=== PATIENT | female | born 1990 | race African-American/Black ===

== ENCOUNTER 2020-05-22 14:20 | Inpatient (IN) | payer BC ==
[~2020-05-22] VITALS: Ht 170.2 cm; Wt 101.8 kg
[2020-05-28] VITALS (35 sets, daily range): BP systolic 84–174; BP diastolic 47–101; PULSE 59–129; TEMP 97.4–98.4
--- NOTE | 2020-05-28 07:05 | NUR ---
Pt here for scheduled induction of labor. 40.0 weeks gestation, G1. Pt taken to room LDR 6 and oriented. Pt EFM, explained. IV started to left hand x1 attempt, labs drawn from IV site per this nurse and then LR infusing without difficulty. GBS +, pen G 5mu started IVPB. NKDA. Assessment complete and consents signed. Pt states having contractions last night and bloody mucous. States baby has been active. Denies any leaking of fluid or SROM. 0740:SVE: 4/75/-3, bulgy bag of littlejohn palpated. 0745:FHR reactive, pitocin started at 2mu per order. 0810:Dr Garza here, updated and at bedside. 0815:SVE 4/75/-2, AROM, clear fluid noted. Pads changed and pt requesting epidural. Alex MATA called and notified. She will on her way to hospital.
[2020-05-28 08:12] LABS: BASO % 0.1 % (0.0-2.0); EOS # 0.1 (0.0-0.7); EOS % 0.7 % (0-4.0); GRAN # 4.9 (1.4-6.5); GRAN % 73.9 % (42.2-75.2); HEMOGLOBIN 11.5 g/dl (12.5-16.0); LYMPH % 15.1 % (20.0-51.0); MEAN CELL VOLUME 90 fl (80.0-100.0); MEAN CORPUSCULAR HEMOGLOBIN 30 pg (27.0-31.0); MEAN CORPUSCULAR HGB CONC 33 g/dl (33.0-37.0); MONO # 0.6 (0.1-0.6); MONO % 9.6 % (1.7-9.3); PLATELET COUNT 272 K/mm3 (130-400); RED BLOOD COUNT 3.84 M/mm3 (4.10-5.30); REDCELL DISTRIBUTION WIDTH-CV 14.1 % (11.5-14.5)
[2020-05-28 08:14] LABS: HEMATOCRIT 34.5 % (37.0-47.0)
--- NOTE | 2020-05-28 08:40 | NUR ---
Alex CORSETS SALESPERSON at bedside and pt repositioned to sitting up on side of bed. Epidural placed, pt tolerated well. Single shot at 0849 and test dose at 0851. Pt then repositioned to bed. 0910:BP 98/53, pt repositioned to left lateral and HOB down. Ephedrine 10mg given IV, pt feeling lightheaded and dizzy. BP 84/47. IV bolus started. 924:BP 97/57 then 114/58. Pt feeling better. Sandra catheter placed and SVE: /-2. New pads placed and pt resting.
--- NOTE | 2020-05-28 10:45 | NUR ---
prolonged variable decel noted, FHR decreased to 70bpm over 2 minutes then back to baseline. 1055, FHR decreases to 90bpm over 90 seconds before returning to baseline. 1110:pt repositioned to left lateral and peanut ball in place.
--- NOTE | 2020-05-28 11:53 | NUR ---
Dr Garza here and updated. Notified of recent decelerations in FHR and will check cervix. Physician assisting with surgery and then will come and evaluate. SVE: /-1.
--- NOTE | 2020-05-28 12:15 | NUR ---
Pt repoistioned to hali position. Feeling pressure with contractions. Dr Garza here and at bedside. 1220:SVE by this nurse, Rim/100/0 noted. Physician here and will recheck at 1245
--- NOTE | 2020-05-28 12:45 | NUR ---
Physician at bedside, SVE: complete/0. Pt prepped on pushing and delivery. 1253:Pt starts to push with contractions. 1300:Sandra catheter removed. Pt making great progress with pushing. FHR with intermittent periods of late decelerations. Pt repositioned to side to push. Dr Garza at nurse's station and monitoring FHR. 1315:pulse ox placed, maternal pulse 90bpm 1329:Dr Gazra at bedside evaluating. Continues to push with patient at this time. 1340:Pt prepped for delivery. 1349: of infants head and shoulders. Nuchal x 2. Cord clamped and to mother's abd and in care of Iveth/Jovan BEDOLLA. 1353:Spontaneous delivery of placenta. LR with pitocin infusing per protocol. 2nd degree lac and bilateral side wall lacerations repaired by physician. Fundus firm, bleeding WNL. New pads and ice pack in place. Pt sitting up in bed holding . Maternal pulse 120-130bpm, will continue to monitor.
--- NOTE | 2020-05-28 14:40 | NUR ---
Straight cath performed at this time. 200cc urine noted.
--- NOTE | 2020-05-28 17:45 | NUR ---
Pt ambulates to bathroom with assist. Voids 400cc. pericare instructions given. Pt to room 207 via wheelchair.
[2020-05-29] VITALS (7 sets, daily range): BP systolic 107–137; BP diastolic 56–77; PULSE 76–89; TEMP 97.9–98.4
--- NOTE | 2020-05-29 05:38 | NUR ---
PT SAYS SHE IS IN A LOT OF PAIN- THAT POSSIBLE HER TAIL BONE IS INJURED. PT IS MEDICATED. SUGGESTING LAYING ON SIDE WITH [place] BETWEEN LEGS. ENCOURAGED PT TO SPEAK WITH ABOUT IT THIS MORNING
--- NOTE | 2020-05-29 09:20 | NUR ---
Initial visit; Parents thanked Boiler Inspector for offering congratulations and God's blessings for the of their son. Boiler Inspector thanked family for choosing our hospital to which they commented that their experience here has been wonderful.
--- NOTE | 2020-05-29 16:02 | NUR ---
PATIENT AND SIGNIFICANT OTHER WATCHING VIDEOS
--- NOTE | 2020-05-29 23:15 | NUR ---
PT FEELS DIZZY AFTER SITTING ON TOILET AND TRYING TO HAVE HAVE A BOWEL MOVEMENT AND GETTING UP TOO FAST- PT SITS ON FLOOR. VITALS ARE TAKEN AND B/P IS LOWER THAN USUAL. PT ASSISTED TO BED WHEN SHE WAS FEELING BETTER COLD CLOTH GIVEN. AFTER 10 MIN PT STATES SHE FEELS BETTER. SHE IS WORRIED THAT SHE HAS NOT HAVEN A BOWEL MOVEMENT. RN EXPLAINED THAT IS VERY NORMAL - ENCOURGED TO AMBULATE AND DRINK WATER.
[2020-05-30 03:40] VITALS: BP 130/69; PULSE 72; TEMP 98.3
[2020-05-30 08:15] VITALS: BP 116/89; PULSE 100; TEMP 98.2
[2020-05-30] MEDS ORDERED: IBU600 MG PO (09:47)
[2020-05-30] MEDS ORDERED: PROCTOFOAM15 GM RC (09:48)
== END 2020-05-30 12:05 | disposition home or self-care (01) | DRG 807 ==
LOC: OB 05-28 06:31 → LDR 05-28 06:55 → OB 05-28 14:19
PROVIDERS: ADMIT Obstetrics & Gynecology
PROC: 10E0XZZ Delivery of Products of Conception, External Approach (ICD-10-PCS; principal; 2020-05-28)
PROC: 0KQM0ZZ Repair Perineum Muscle, Open Approach (ICD-10-PCS; 2020-05-28)
PROC: 10907ZC Drainage of Amniotic Fluid, Therapeutic from Products of Conception, Via Natural or Artificial Opening (ICD-10-PCS; 2020-05-28)
PROC: 0UQGXZZ Repair Vagina, External Approach (ICD-10-PCS; 2020-05-28)
DX: O99.824 Streptococcus B carrier state complicating childbirth (principal); Z37.0 Single live birth; O99.02 Anemia complicating childbirth; D64.9 Anemia, unspecified; O69.81X0 Labor and delivery complicated by cord around neck, without compression, not applicable or unspecified; O70.1 Second degree perineal laceration during delivery; O99.344 Other mental disorders complicating childbirth; F41.9 Anxiety disorder, unspecified; O75.89 Other specified complications of labor and delivery; D35.2 Benign neoplasm of pituitary gland; O99.62 Diseases of the digestive system complicating childbirth; K64.9 Unspecified hemorrhoids; Z3A.40 40 weeks gestation of pregnancy
CPT/HCPCS: J2540; J2590; J2795; J7120

== ENCOUNTER → 2020-05-23 | Outpatient (CLI) | payer BC ==
[~2020-05-23] MED LIST: IBU600 MG PO; PROCTOFOAM15 GM RC
== END ==
LOC: ZCOL.LAB
DX: Z20.828 Contact with and (suspected) exposure to other viral communicable diseases (principal)